=== PATIENT | female | born 1935 | race Caucasian/White ===

== ENCOUNTER 2017-04-09 20:24 | Inpatient (IN) | payer MEDICARE ==
[~2017-04-09] VITALS: Ht 162.6 cm; Wt 89.7 kg
[2017-04-09 20:56] LABS: BASOPHILS 0.3 % (0-2); EOSINOPHILS 3.9 % (0-7); HEMOGLOBIN 16.4 g/dL (12-16); IMMATURE GRANULOCYTES 0.3 % (0-5); LYMPHOCYTES 20.7 % (15-50); MCH 32.7 pg (26.0-34.0); MCHC 34.2 g/dL (31.0-37.0); MCV 95.8 fL (80.0-100.0); MEAN PLATELET VOLUME 10.1 fL (7.4-10.4); NEUTROPHILS 63.8 % (40-80); PLATELET COUNT 239 10x3/uL (130-400); RBC 5.01 10x6/uL (4.00-5.40); RDW 12.6 % (11.5-14.5)
[2017-04-09 21:13] LABS: ALBUMIN 3.4 g/dL (3.4-5.0); ANION GAP 14.3 mmol/L (8-16); BILIRUBIN - TOTAL 0.52 mg/dL (0.2-1.3); CALCIUM 9.9 mg/dL (8.5-10.1); CARBON DIOXIDE 22.7 mmol/L (21.0-32.0); CREATININE - SERUM 1.4 mg/dL (0.6-1.3)
[2017-04-09 22:21] LABS: APPEARANCE CLEAR (CLEAR); BILIRUBIN NEGATIVE (NEGATIVE); COLOR YELLOW (YELLOW); GLUCOSE NEGATIVE (NEGATIVE); KETONE MODERATE mg/dL (NEGATIVE); NITRITE NEGATIVE (NEGATIVE); PROTEIN NEGATIVE (NEGATIVE); UROBILINOGEN NORMAL (NORMAL)
[2017-04-10] MEDS ORDERED: GLUCOPHAGE500 MG PO (02:47)
[2017-04-10] MEDS ORDERED: ZOCOR20 MG PO (02:47)
[2017-04-10] MEDS ORDERED: UROCIT-K10 MEQ PO (02:48)
[2017-04-10] MEDS ORDERED: OMEPRAZOLE20 M1 PO (02:48)
[2017-04-10] MEDS ORDERED: NEURONTIN 300300 MG PO (02:49)
[2017-04-10] MEDS ORDERED: ASCORBIC ACID500 MG PO (02:49)
[2017-04-10] MEDS ORDERED: LASIX20 MG PO (02:50)
[2017-04-10] MEDS ORDERED: PRESERVISION AR1 CAP PO (02:50)
[2017-04-10] MEDS ORDERED: LEVOXYL50 MCG PO (02:51)
[2017-04-10] MEDS ORDERED: ULTRAM50 MG PO (02:51)
[2017-04-10] MEDS ORDERED: TOPROL XL50 MG PO (02:52)
[2017-04-10 03:22] VITALS: BP 116/87; BMI 35.2
[2017-04-10 04:00] VITALS: BP 160/82
[2017-04-10 10:41] VITALS: BP 114/70
[2017-04-10 13:16] VITALS: Ht 162.6 cm; Wt 89.7 kg
[2017-04-10 13:28] VITALS: BP 153/86
[2017-04-10 17:54] VITALS: BP 167/72
[2017-04-10 20:16] VITALS: BP 152/78
[2017-04-11 02:22] VITALS: BP 186/89
[2017-04-11 06:01] LABS: BASOPHILS 0.3 % (0-2); EOSINOPHILS 2.1 % (0-7); HEMATOCRIT 45.5 % (36.0-48.0); HEMOGLOBIN 15.3 g/dL (12-16); IMMATURE GRANULOCYTES 0.3 % (0-5); LYMPHOCYTES 19.5 % (15-50); MCHC 33.6 g/dL (31.0-37.0); MCV 95.2 fL (80.0-100.0); MEAN PLATELET VOLUME 10.4 fL (7.4-10.4); MONOCYTES 13.4 % (2-11); NEUTROPHILS 64.4 % (40-80); PLATELET COUNT 253 10x3/uL (130-400); RBC 4.78 10x6/uL (4.00-5.40); WBC 6.6 10x3/uL (4.8-10.8)
[2017-04-11 06:14] LABS: ANION GAP 14.2 mmol/L (8-16); CALCIUM 9.5 mg/dL (8.5-10.1); CARBON DIOXIDE 23.7 mmol/L (21.0-32.0); CREATININE - SERUM 1.3 mg/dL (0.6-1.3); POTASSIUM - SERUM 3.9 mmol/L (3.5-5.1)
[2017-04-11 08:34] VITALS: BP 166/75
[2017-04-11 11:50] VITALS: BP 141/81
[2017-04-11 16:22] VITALS: BP 139/62
[2017-04-11 20:00] VITALS: BP 176/82
[2017-04-12 04:00] VITALS: BP 185/87
[2017-04-12 05:34] LABS: BASOPHILS 0.4 % (0-2); HEMATOCRIT 45.6 % (36.0-48.0); HEMOGLOBIN 15.4 g/dL (12-16); IMMATURE GRANULOCYTES 0.4 % (0-5); LYMPHOCYTES 16.9 % (15-50); MCH 32.1 pg (26.0-34.0); MCHC 33.8 g/dL (31.0-37.0); MEAN PLATELET VOLUME 10.1 fL (7.4-10.4); MONOCYTES 10.3 % (2-11); PLATELET COUNT 253 10x3/uL (130-400); RDW 12.9 % (11.5-14.5)
[2017-04-12 05:45] LABS: ANION GAP 15.4 mmol/L (8-16); CALCIUM 9.5 mg/dL (8.5-10.1); CARBON DIOXIDE 23.6 mmol/L (21.0-32.0); CREATININE - SERUM 1.1 mg/dL (0.6-1.3)
[2017-04-12 09:02] VITALS: BP 183/79
[2017-04-12 12:14] VITALS: BP 132/78
[2017-04-12 16:19] VITALS: BP 160/78
[2017-04-12 20:46] VITALS: BP 150/75
[2017-04-13 05:57] LABS: BASOPHILS 0.4 % (0-2); EOSINOPHILS 2.8 % (0-7); IMMATURE GRANULOCYTES 0.8 % (0-5); LYMPHOCYTES 22.4 % (15-50); MCH 33.1 pg (26.0-34.0); MCHC 35.6 g/dL (31.0-37.0); MCV 93.2 fL (80.0-100.0); MONOCYTES 11.3 % (2-11); NEUTROPHILS 62.3 % (40-80); PLATELET COUNT 201 10x3/uL (130-400); RBC 4.83 10x6/uL (4.00-5.40); RDW 12.8 % (11.5-14.5); WBC 8.5 10x3/uL (4.8-10.8)
[2017-04-13 05:59] LABS: CALCIUM 8.9 mg/dL (8.5-10.1); CARBON DIOXIDE 19.6 mmol/L (21.0-32.0); CREATININE - SERUM 1.3 mg/dL (0.6-1.3)
[2017-04-13 06:00] LABS: POTASSIUM - SERUM 3.6 mmol/L (3.5-5.1)
[2017-04-13 06:57] VITALS: BP 182/85
[2017-04-13 10:27] VITALS: BP 186/87
[2017-04-13 12:45] VITALS: BP 150/74
[2017-04-13 16:25] VITALS: BP 174/81
[2017-04-13 20:49] VITALS: BP 136/71
[2017-04-14 06:33] VITALS: BP 131/83
[2017-04-14 06:52] LABS: BASOPHILS 0.5 % (0-2); EOSINOPHILS 3.4 % (0-7); HEMATOCRIT 45.7 % (36.0-48.0); HEMOGLOBIN 15.6 g/dL (12-16); IMMATURE GRANULOCYTES 0.2 % (0-5); LYMPHOCYTES 22.2 % (15-50); MCHC 34.1 g/dL (31.0-37.0); MCV 93.6 fL (80.0-100.0); MEAN PLATELET VOLUME 10.5 fL (7.4-10.4); MONOCYTES 10.6 % (2-11); NEUTROPHILS 63.1 % (40-80); PLATELET COUNT 225 10x3/uL (130-400); RBC 4.88 10x6/uL (4.00-5.40); RDW 12.9 % (11.5-14.5); WBC 8.3 10x3/uL (4.8-10.8)
[2017-04-14 06:55] LABS: ANION GAP 15.9 mmol/L (8-16); CALCIUM 9.1 mg/dL (8.5-10.1); CARBON DIOXIDE 17.4 mmol/L (21.0-32.0); CREATININE - SERUM 1.1 mg/dL (0.6-1.3); POTASSIUM - SERUM 3.3 mmol/L (3.5-5.1)
[2017-04-14 07:59] VITALS: BP 145/79
[2017-04-14 11:22] VITALS: BP 132/76
[2017-04-14 15:32] VITALS: BP 138/69
[2017-04-14 20:30] VITALS: BP 168/83
[2017-04-14] MEDS ORDERED: LUMIGAN 0.01%2.5 ML EACH EYE (23:04)
[2017-04-15 00:30] VITALS: BP 142/73
[2017-04-15 04:30] VITALS: BP 176/80
[2017-04-15 05:10] LABS: ANION GAP 14.7 mmol/L (8-16); CALCIUM 9.3 mg/dL (8.5-10.1); CREATININE - SERUM 1.3 mg/dL (0.6-1.3); POTASSIUM - SERUM 3.5 mmol/L (3.5-5.1)
[2017-04-15 05:15] LABS: BASOPHILS 0.5 % (0-2); EOSINOPHILS 2.7 % (0-7); HEMATOCRIT 45.8 % (36.0-48.0); HEMOGLOBIN 15.9 g/dL (12-16); IMMATURE GRANULOCYTES 0.3 % (0-5); LYMPHOCYTES 21.7 % (15-50); MCH 31.9 pg (26.0-34.0); MCHC 34.7 g/dL (31.0-37.0); MCV 91.8 fL (80.0-100.0); MEAN PLATELET VOLUME 10.3 fL (7.4-10.4); MONOCYTES 10.8 % (2-11); PLATELET COUNT 255 10x3/uL (130-400); RBC 4.99 10x6/uL (4.00-5.40); WBC 7.9 10x3/uL (4.8-10.8)
[2017-04-15 05:22] LABS: CARBON DIOXIDE 21.8 mmol/L (21.0-32.0)
[2017-04-15 08:08] VITALS: BP 154/71
[2017-04-15 10:58] VITALS: BP 146/66
[2017-04-15 15:29] VITALS: BP 140/68
[2017-04-15] MEDS ORDERED: NORVASC5 MG PO (15:44)
== END 2017-04-15 18:33 | DRG 682 ==
LOC: EDBD 20:24 → D.ER 20:24 → D.M2 04-10 01:39
PROVIDERS: Emergency Medicine; Internal Medicine Nephrology
DX: N17.9 Acute kidney failure, unspecified (principal); G92 Toxic encephalopathy; N39.0 Urinary tract infection, site not specified; E11.9 Type 2 diabetes mellitus without complications; Z86.73 Personal history of transient ischemic attack (TIA), and cerebral infarction without residual deficits; G30.9 Alzheimer's disease, unspecified; F02.80 Dementia in other diseases classified elsewhere, unspecified severity, without behavioral disturbance, psychotic disturbance, mood disturbance, and anxiety; I10 Essential (primary) hypertension; E78.5 Hyperlipidemia, unspecified; E03.9 Hypothyroidism, unspecified; B96.1 Klebsiella pneumoniae [K. pneumoniae] as the cause of diseases classified elsewhere; B96.20 Unspecified Escherichia coli [E. coli] as the cause of diseases classified elsewhere

== ENCOUNTER 2017-04-15 18:15 | Inpatient (IN) | payer MEDICARE ==
[~2017-04-15] VITALS: Ht 162.6 cm; Wt 89.5 kg
--- NOTE | ~2017-04-15 | RHP ---
PATIENT: ABHIJIT GALE MEDICAL RECORD: [id number] ACCOUNT: [id number] LOCATION:[facility] D.1110 : 35 ADMISSION DATE: 04/15/17 REHABILITATION HISTORY AND PHYSICAL EXAMINATION POST ADMISSION PHYSICIAN EXAMINATION DATE OF ADMISSION TO THE REHAB: 04/15/2017. ADMITTING DIAGNOSIS: Acute toxic metabolic encephalopathy. HISTORY OF PRESENT ILLNESS: The patient is an 81-year-old female patient admitted to the inpatient rehab with acute toxic metabolic encephalopathy, presented to the ER on 04/10/2017 with altered mental status. Her daughter reports that approximately 2 weeks ago, she contracted influenza type A and she was treated with Tamiflu. She then developed generalized weakness, nausea and vomiting, decreased appetite. The daughter had noticed the patient's level of alertness and ability to speak also declined. X-ray showed no acute findings. MRI of her brain was normal. She was admitted for further evaluation and treatment. Urine culture did grow out Klebsiella and E. coli. She was placed on Levaquin. A bedside swallow eval showed no signs of aspiration, but recommended swallowing precautions sitting upright, alternation of bites to sips at a 2:1 ratio. Mental status is now cleared with cessation of high dose Neurontin and treatment of UTI. Previously, she was independent with ADLs and mobility. Currently, she is min to moderate assist with ADLs and mobility. She has had prolonged immobility, progressive generalized weakness, especially in her lower extremities affecting her exercise tolerance. She is moderate assist for sit to stand and bed to chair. She ambulates 200 feet with a rolling walker, gait belt with 40% assist. She is weak and has a slow short step with fair balance. She has good family support and is motivated to get back to her prior level of functioning. COMORBIDITIES: In this patient include hypothyroidism, diabetes, dysphagia, encephalopathy, kidney injury, vertigo, neuropathy, hyperlipidemia, acute mental status changes, confusion, weakness, diabetes, hypokalemia, positive UA, headache, anxiety, and history of CVA. PAST MEDICAL HISTORY: Significant for CVA, neuropathy, weakness, and vertigo. She has had a history of glaucoma. She has got a history of diabetes and thyroid problems, syncope, hypertension, acid reflux, dementia, and anxiety. PAST SURGICAL HISTORY: Includes wrist surgery. She has had a parathyroidectomy and TMJ surgery. ALLERGIES: No known drug allergies. CURRENT MEDICATIONS: Include Urocit-K 10 mEq b.i.d. with meals, Protonix 40 mg daily, metoprolol 50 mg daily, metformin 500 mg daily. She is on Synthroid 50 mcg daily, furosemide 20 mg daily, beta carotene vitamin daily, tramadol 50 mg q.6 hours p.r.n. She is on bimatoprost ophthalmic solution 1 drop q.h.s. She is on ascorbic acid 500 mg b.i.d., amlodipine 5 mg b.i.d., and polyethylene glycol 17 grams in 8 ounces of water daily. HABITS: No alcohol or tobacco use. FAMILY HISTORY: Noncontributory. HISTORY AND PHYSICAL [id number] ABHIJIT GALE SOCIAL HISTORY: The patient hopes to return back with her family and get back to her prior level of functioning. REVIEW OF SYSTEMS: GENERAL: Does complain of weakness and fatigue. HEENT: Denies cold, cough, or congestion. CARDIOVASCULAR: Denies chest pain. PHYSICAL EXAMINATION: VITAL SIGNS: Stable, afebrile. GENERAL: Elderly female in no acute distress, alert upon exam. HEENT: Normocephalic and atraumatic. Mucosa moist. NECK: Supple. No lymphadenopathy. LUNGS: Clear at this time. HEART: Regular rate and rhythm. ABDOMEN: Benign. EXTREMITIES: No clubbing, cyanosis or edema. NEUROLOGIC: Slow to mentate. She does have noted weakness. LABORATORY DATA: Her white count was 7.5, H&H of 15 and 43 and platelet count of 229. Sodium is 139, potassium 3.4, BUN and creatinine of 16 and 1.2 and blood sugar is noted to be 114. ASSESSMENT: This is an 81-year-old female patient admitted to the rehab with a working diagnosis of acute metabolic toxic encephalopathy. The patient has potential to make improvement. We instituted the following multidisciplinary therapies including to, but not limited to physical, occupational, respiratory, speech, nutritional services, prosthetics and orthotics. Given her complex medical condition and risk for more complications, rehabilitation service cannot be provided at a lower level of care such as a half-way facility. PLAN: 1. Admit to [facility] rehab for intensive inpatient therapy to include the following disciplines: A. Physical therapy to improve gait, all transfer skills and bed mobility to a modified independent level. B. Occupational therapy to improve activities of daily living to a modified independent level. C. Case management to assist with discharge planning and placement options. D. Nutrition to assist with nutritional needs. E. Rehabilitation nursing to assist the patient underlying medical conditions and to assist with any type of bowel or bladder management. 2. The patient's current medication and medical care will be continued. 3. The patient will be placed on standard fall precautions. 4. The patient's estimated length of stay is approximately 7 to 10 days. 5. Discuss this patient during care team staff meeting this week. TRANSINT:[id number] Voice Confirmation ID: [id number] DOCUMENT ID: [id number] DAPHNE notes whether there has been none or any medical/functional change since admission: - No change since prescreen. HISTORY AND PHYSICAL [id number] ABHIJIT GALE attests patient continues to be appropriate for IRF: - Continues to be appropriate. SUMMER BEGUM MD at 1739 CC: [id number] DICTATION DATE: 04/16/17 1032 ENERGY AUDIT ADVISOR: 04/16/17 1102 ADM IN [facility] [address] [place] [address]
[~2017-04-15 18:15] MED LIST: ASCORBIC ACID500 MG PO; GLUCOPHAGE500 MG PO; LASIX20 MG PO; LEVOXYL50 MCG PO; LUMIGAN 0.01%2.5 ML EACH EYE; NEURONTIN 300300 MG PO; NORVASC5 MG PO; OMEPRAZOLE20 M1 PO; PRESERVISION AR1 CAP PO; TOPROL XL50 MG PO; ULTRAM50 MG PO; UROCIT-K10 MEQ PO; ZOCOR20 MG PO
[2017-04-15 22:39] VITALS: BP 162/74; BMI 33.9
[2017-04-16 07:17] LABS: HEMOGLOBIN 15.1 g/dL (12-16); LYMPHOCYTES 23.8 % (15-50); MCH 32.3 pg (26.0-34.0); MCHC 35.1 g/dL (31.0-37.0); MCV 91.9 fL (80.0-100.0); MEAN PLATELET VOLUME 9.7 fL (7.4-10.4); PLATELET COUNT 229 10x3/uL (130-400); RBC 4.68 10x6/uL (4.00-5.40); RDW 13.3 % (11.5-14.5); WBC 7.5 10x3/uL (4.8-10.8)
[2017-04-16 07:21] LABS: ANION GAP 13.2 mmol/L (8-16); CALCIUM 9.5 mg/dL (8.5-10.1); CARBON DIOXIDE 22.2 mmol/L (21.0-32.0); CREATININE - SERUM 1.2 mg/dL (0.6-1.3); POTASSIUM - SERUM 3.4 mmol/L (3.5-5.1)
[2017-04-16 08:16] VITALS: BP 151/77
[2017-04-16 11:04] VITALS: Ht 162.6 cm; Wt 89.5 kg
[2017-04-16 20:30] VITALS: BP 130/68
[2017-04-17 07:00] LABS: BASOPHILS 0.6 % (0-2); EOSINOPHILS 3.1 % (0-7); HEMATOCRIT 43.6 % (36.0-48.0); HEMOGLOBIN 15.3 g/dL (12-16); IMMATURE GRANULOCYTES 0.4 % (0-5); LYMPHOCYTES 25.9 % (15-50); MCH 32.3 pg (26.0-34.0); MCHC 35.1 g/dL (31.0-37.0); MCV 92.2 fL (80.0-100.0); MEAN PLATELET VOLUME 10.6 fL (7.4-10.4); MONOCYTES 12.7 % (2-11); NEUTROPHILS 57.3 % (40-80); PLATELET COUNT 242 10x3/uL (130-400); RBC 4.73 10x6/uL (4.00-5.40); WBC 7.2 10x3/uL (4.8-10.8)
[2017-04-17 07:17] LABS: ANION GAP 16.3 mmol/L (8-16); CALCIUM 9.6 mg/dL (8.5-10.1); CARBON DIOXIDE 21.3 mmol/L (21.0-32.0); CREATININE - SERUM 1.4 mg/dL (0.6-1.3); POTASSIUM - SERUM 3.6 mmol/L (3.5-5.1)
[2017-04-17 08:07] VITALS: BP 138/73
[2017-04-17 21:45] VITALS: BP 133/82
[2017-04-18 08:00] VITALS: BP 125/64
[2017-04-18 22:09] VITALS: BP 122/66
[2017-04-19 06:26] LABS: BASOPHILS 0.3 % (0-2); HEMATOCRIT 43.6 % (36.0-48.0); HEMOGLOBIN 15.3 g/dL (12-16); IMMATURE GRANULOCYTES 0.2 % (0-5); LYMPHOCYTES 20.8 % (15-50); MCH 32.5 pg (26.0-34.0); MCHC 35.1 g/dL (31.0-37.0); MCV 92.6 fL (80.0-100.0); MEAN PLATELET VOLUME 10.5 fL (7.4-10.4); MONOCYTES 18.6 % (2-11); NEUTROPHILS 58.1 % (40-80); PLATELET COUNT 247 10x3/uL (130-400); RBC 4.71 10x6/uL (4.00-5.40); RDW 13.4 % (11.5-14.5); WBC 8.7 10x3/uL (4.8-10.8)
[2017-04-19 06:39] LABS: ANION GAP 12.9 mmol/L (8-16); CREATININE - SERUM 1.6 mg/dL (0.6-1.3); POTASSIUM - SERUM 3.4 mmol/L (3.5-5.1)
[2017-04-19 06:40] LABS: CARBON DIOXIDE 27.5 mmol/L (21.0-32.0)
[2017-04-19 06:56] LABS: CALCIUM 10.1 mg/dL (8.5-10.1)
[2017-04-19 08:29] VITALS: BP 122/66
[2017-04-19 20:00] VITALS: BP 125/60
[2017-04-20 07:39] VITALS: BP 128/76
[2017-04-20 07:55] VITALS: BP 128/76
[2017-04-20 19:45] VITALS: BP 125/83
[2017-04-21 11:33] VITALS: BP 116/75
[2017-04-21 20:30] VITALS: BP 122/65
[2017-04-22 05:17] LABS: BASOPHILS 0.2 % (0-2); EOSINOPHILS 0.4 % (0-7); HEMATOCRIT 44.1 % (36.0-48.0); HEMOGLOBIN 15.1 g/dL (12-16); IMMATURE GRANULOCYTES 0.2 % (0-5); LYMPHOCYTES 20.9 % (15-50); MCH 31.9 pg (26.0-34.0); MCHC 34.2 g/dL (31.0-37.0); MCV 93.2 fL (80.0-100.0); MEAN PLATELET VOLUME 10.7 fL (7.4-10.4); MONOCYTES 20.5 % (2-11); NEUTROPHILS 57.8 % (40-80); PLATELET COUNT 245 10x3/uL (130-400); RBC 4.73 10x6/uL (4.00-5.40); RDW 13.3 % (11.5-14.5); WBC 5.4 10x3/uL (4.8-10.8)
[2017-04-22 05:35] LABS: ANION GAP 15.2 mmol/L (8-16); CARBON DIOXIDE 25.6 mmol/L (21.0-32.0); CREATININE - SERUM 1.4 mg/dL (0.6-1.3); POTASSIUM - SERUM 3.8 mmol/L (3.5-5.1)
[2017-04-22 07:48] VITALS: BP 126/73
[2017-04-22 19:00] VITALS: BP 133/73
[2017-04-23 10:12] VITALS: BP 120/70
[2017-04-23 21:40] VITALS: BP 131/68
[2017-04-24 05:44] LABS: BASOPHILS 0.2 % (0-2); EOSINOPHILS 0.2 % (0-7); HEMATOCRIT 42.9 % (36.0-48.0); HEMOGLOBIN 14.7 g/dL (12-16); IMMATURE GRANULOCYTES 0.4 % (0-5); LYMPHOCYTES 36.1 % (15-50); MCHC 34.3 g/dL (31.0-37.0); MCV 93.5 fL (80.0-100.0); MEAN PLATELET VOLUME 10.7 fL (7.4-10.4); MONOCYTES 17.8 % (2-11); NEUTROPHILS 45.3 % (40-80); PLATELET COUNT 228 10x3/uL (130-400); RBC 4.59 10x6/uL (4.00-5.40); RDW 13.4 % (11.5-14.5); WBC 4.9 10x3/uL (4.8-10.8)
[2017-04-24 05:52] LABS: ANION GAP 15.5 mmol/L (8-16); CALCIUM 9.3 mg/dL (8.5-10.1); CARBON DIOXIDE 25.1 mmol/L (21.0-32.0); CREATININE - SERUM 1.5 mg/dL (0.6-1.3); POTASSIUM - SERUM 3.6 mmol/L (3.5-5.1)
[2017-04-24 07:48] VITALS: BP 131/77
[2017-04-24 19:55] VITALS: BP 134/72
[2017-04-25 07:42] VITALS: BP 142/82
[2017-04-25 19:55] VITALS: BP 127/71
[2017-04-26 07:07] LABS: BASOPHILS 0.4 % (0-2); EOSINOPHILS 2.2 % (0-7); HEMATOCRIT 47.3 % (36.0-48.0); IMMATURE GRANULOCYTES 0.6 % (0-5); LYMPHOCYTES 43.8 % (15-50); MCH 31.9 pg (26.0-34.0); MCHC 33.8 g/dL (31.0-37.0); MCV 94.2 fL (80.0-100.0); MEAN PLATELET VOLUME 10.6 fL (7.4-10.4); MONOCYTES 12.1 % (2-11); NEUTROPHILS 40.9 % (40-80); PLATELET COUNT 223 10x3/uL (130-400); RBC 5.02 10x6/uL (4.00-5.40); RDW 13.4 % (11.5-14.5); WBC 4.6 10x3/uL (4.8-10.8)
[2017-04-26 07:12] LABS: CALCIUM 9.3 mg/dL (8.5-10.1); CARBON DIOXIDE 25.8 mmol/L (21.0-32.0); CREATININE - SERUM 1.6 mg/dL (0.6-1.3); POTASSIUM - SERUM 3.8 mmol/L (3.5-5.1)
[2017-04-26 09:10] VITALS: BP 110/70
[2017-04-26 20:00] VITALS: BP 100/68
[2017-04-27 08:32] VITALS: BP 114/67
[2017-04-27 19:40] VITALS: BP 111/66
[2017-04-28 07:56] VITALS: BP 120/69
[2017-04-28 22:00] VITALS: BP 128/73
[2017-04-29 06:32] LABS: BASOPHILS 0.4 % (0-2); EOSINOPHILS 3.7 % (0-7); HEMOGLOBIN 16.4 g/dL (12-16); IMMATURE GRANULOCYTES 0.4 % (0-5); LYMPHOCYTES 40.3 % (15-50); MCH 31.8 pg (26.0-34.0); MCHC 34.2 g/dL (31.0-37.0); MEAN PLATELET VOLUME 10.7 fL (7.4-10.4); MONOCYTES 10.5 % (2-11); NEUTROPHILS 44.7 % (40-80); PLATELET COUNT 217 10x3/uL (130-400); RBC 5.16 10x6/uL (4.00-5.40); RDW 13.2 % (11.5-14.5); WBC 6.9 10x3/uL (4.8-10.8)
[2017-04-29 06:37] LABS: ANION GAP 17.7 mmol/L (8-16); CALCIUM 9.7 mg/dL (8.5-10.1); CARBON DIOXIDE 21.4 mmol/L (21.0-32.0); CREATININE - SERUM 1.4 mg/dL (0.6-1.3); POTASSIUM - SERUM 4.1 mmol/L (3.5-5.1)
[2017-04-29 07:45] VITALS: BP 123/67
[2017-04-29 20:00] VITALS: BP 133/68
[2017-04-30 08:48] VITALS: BP 118/60
== END 2017-04-30 14:18 | disposition home health service (06) | DRG 92 ==
LOC: D.REHAB 18:15
PROVIDERS: Emergency Medicine
DX: G92 Toxic encephalopathy (principal); N17.9 Acute kidney failure, unspecified; R13.10 Dysphagia, unspecified; E03.9 Hypothyroidism, unspecified; Z66 Do not resuscitate; E78.5 Hyperlipidemia, unspecified; G62.9 Polyneuropathy, unspecified; R42 Dizziness and giddiness; R53.1 Weakness; R41.82 Altered mental status, unspecified; E87.6 Hypokalemia; F41.9 Anxiety disorder, unspecified; G30.9 Alzheimer's disease, unspecified; F02.80 Dementia in other diseases classified elsewhere, unspecified severity, without behavioral disturbance, psychotic disturbance, mood disturbance, and anxiety; E11.40 Type 2 diabetes mellitus with diabetic neuropathy, unspecified

== ENCOUNTER → 2017-06-03 18:55 | Outpatient (CLI) | payer MEDICARE ==
[2017-04-16 11:04] VITALS: BMI 33.8
[2017-06-06 19:12] LABS: LEAD 1 ug/dL (0-19)
== END | disposition home or self-care (01) ==
LOC: D.LABREF 18:55
PROVIDERS: Family Medicine
DX: Z86.73 Personal history of transient ischemic attack (TIA), and cerebral infarction without residual deficits (principal); G93.41 Metabolic encephalopathy; F02.80 Dementia in other diseases classified elsewhere, unspecified severity, without behavioral disturbance, psychotic disturbance, mood disturbance, and anxiety

== ENCOUNTER 2017-10-11 14:37 | Emergency (ER) | payer MEDICARE ==
[~2017-10-11] VITALS: Ht 162.6 cm; Wt 77.3 kg
[2017-10-11 14:39] VITALS: Ht 162.6 cm; Wt 77.3 kg
[2017-10-11] MEDS ORDERED: LOSARTAN POTASS25 MG PO (14:43)
[2017-10-11] MEDS ORDERED: PRESERVISION AR1 CAP PO (14:43)
[2017-10-11] MEDS ORDERED: XALATAN 0.0052.5 ML EACH EYE (14:43)
[2017-10-11] MEDS ORDERED: NYSTATIN15 GM TOPICAL (14:44)
[2017-10-11] MEDS ORDERED: ZOFRAN ODT4 MG/UDTAB PO (14:44)
[2017-10-11] MEDS ORDERED: CATAPRES0.1 MG PO (14:45)
[2017-10-11] MEDS ORDERED: PROTONIX40 MG PO (14:45)
[2017-10-11] MEDS ORDERED: VOLTAREN100 GM TOPICAL (14:46)
[2017-10-11] MEDS ORDERED: EFFEXOR XR75 MG PO (14:46)
[2017-10-11] MEDS ORDERED: ACETAMINOPHEN325 MG PO (14:47)
[2017-10-11] MEDS ORDERED: ALENDRONATE SOD70 MG PO (14:47)
[2017-10-11] MEDS ORDERED: ARICEPT10 MG PO (14:48)
[2017-10-11] MEDS ORDERED: ASPIRIN EC81 M1 PO (14:48)
[2017-10-11] MEDS ORDERED: VITAMIN D10000 UNI1 PO (14:48)
[2017-10-11 18:24] VITALS: BP 172/82
== END 2017-10-11 17:00 ==
LOC: D.ER 14:37
DX: I10 Essential (primary) hypertension (principal); W19.XXXA Unspecified fall, initial encounter; Y93.89 Activity, other specified; Y92.019 Unspecified place in single-family (private) house as the place of occurrence of the external cause; R51 Headache; E11.9 Type 2 diabetes mellitus without complications; E07.9 Disorder of thyroid, unspecified; F03.90 Unspecified dementia, unspecified severity, without behavioral disturbance, psychotic disturbance, mood disturbance, and anxiety

== ENCOUNTER → 2017-12-13 18:42 | Outpatient (CLI) | payer MEDICARE ==
[2017-10-11 14:39] VITALS: BMI 29.2
[~2017-12-13 18:42] MED LIST changes: +ACETAMINOPHEN325 MG PO; +ALENDRONATE SOD70 MG PO; +ARICEPT10 MG PO; +ASPIRIN EC81 M1 PO; +CATAPRES0.1 MG PO; +EFFEXOR XR75 MG PO; +LOSARTAN POTASS25 MG PO; +NYSTATIN15 GM TOPICAL; +PROTONIX40 MG PO; +VITAMIN D10000 UNI1 PO; +VOLTAREN100 GM TOPICAL; +XALATAN 0.0052.5 ML EACH EYE; +ZOFRAN ODT4 MG/UDTAB PO
[2017-12-13 19:09] LABS: APPEARANCE CLEAR (CLEAR); BILIRUBIN NEGATIVE (NEGATIVE); COLOR YELLOW (YELLOW); GLUCOSE NEGATIVE (NEGATIVE); KETONE NEGATIVE (NEGATIVE); NITRITE NEGATIVE (NEGATIVE); PROTEIN NEGATIVE (NEGATIVE); SPECIFIC GRAVITY 1.015 (1.005-1.020); UROBILINOGEN NORMAL (NORMAL)
== END | disposition home or self-care (01) ==
LOC: D.LABREF 18:42
PROVIDERS: Orthopaedic Surgery Adult Reconstructive Orthopaedic Surgery
DX: Z87.440 Personal history of urinary (tract) infections (principal); R30.0 Dysuria

== ENCOUNTER 2019-02-04 17:56 | Inpatient (IN) | payer MEDICARE ==
[~2019-02-04] VITALS: Ht 162.6 cm; Wt 88.6 kg
[2019-02-04] MEDS ORDERED: SUMATRIPTAN SUC25 MG PO (18:17)
[2019-02-04] MEDS ORDERED: ZETIA10 MG PO (18:18)
[2019-02-04] MEDS ORDERED: HCTZ25 MG (18:18)
[2019-02-04] MEDS ORDERED: FLUTICASONE PRO16 GM NASAL (18:18)
--- NOTE | 2019-02-04 19:06 | NUR ---
BS REPORT TO MARIE SANTOYO
[2019-02-04 19:07] VITALS: BP 118/78
[2019-02-04 19:07] LABS: CALC OSMOLALITY 294 mosm/kg (275-300); CALCIUM 9.8 mg/dL (8.5-10.1); CHLORIDE - SERUM 102 mmol/L (98-107); CREATININE - SERUM 1.8 mg/dL (0.6-1.3); POTASSIUM - SERUM 4.9 mmol/L (3.5-5.1); SODIUM 140 mmol/L (136-145); UREA NITROGEN 41 mg/dL (7-18); eGFR NON AFRICAN AMERICAN 28 mL/min (90-120)
[2019-02-04 19:08] LABS: GLUCOSE 210 mg/dL (74-106)
[2019-02-04 19:16] LABS: ALBUMIN 3.3 g/dL (3.4-5.0); ALKALINE PHOSPHATASE 82 U/L (46-116); ALT (SGPT) 89 U/L (10-68); AMYLASE - SERUM 57 U/L (25-115); BILIRUBIN - TOTAL 0.76 mg/dL (0.2-1.3); LIPASE 108 U/L (73-393); PROTEIN - SERUM 7.1 g/dL (6.4-8.2)
[2019-02-04 19:17] LABS: TROPONIN-I < 0.017 ng/mL (0.000-0.060)
[2019-02-04 19:19] LABS: BASOPHILS 0.1 % (0-2); EOSINOPHILS 0 % (0-7); HEMATOCRIT 48.9 % (36.0-48.0); HEMOGLOBIN 16.5 g/dL (12-16); IMMATURE GRANULOCYTES 0.3 % (0-5); LYMPHOCYTES 2.4 % (15-50); MCH 33.1 pg (26.0-34.0); MCHC 33.7 g/dL (31.0-37.0); MCV 98.2 fL (80.0-100.0); MEAN PLATELET VOLUME 10.2 fL (7.4-10.4); MONOCYTES 5.8 % (2-11); NEUTROPHILS 91.4 % (40-80); PLATELET COUNT 206 10x3/uL (130-400); RBC 4.98 10x6/uL (4.00-5.40); RDW 12.8 % (11.5-14.5); WBC 11.2 10x3/uL (4.8-10.8)
[2019-02-04 20:09] VITALS: BP 137/65
--- NOTE | 2019-02-04 21:45 | NUR ---
RECIEVED REPORT FROM [facility]. PT ARRIVED BY BED. VSS, ALTHOUGH PT HAS A TEMP OF 101.4. PT STATES SHE FEELS A LITTLE QUEASY IN HER ABDOMEN. WILL NOTIFY ELECTRICAL ENGINEERING DESIGNER. FAMILY AT BEDSIDE. PT DENIES ANY FURTHER NEEDS AT THIS TIME. WILL CPOC. CL WITHIN REACH.
[2019-02-04 21:58] LABS: APPEARANCE CLEAR (CLEAR); BILIRUBIN NEGATIVE (NEGATIVE); COLOR YELLOW (YELLOW); GLUCOSE NEGATIVE (NEGATIVE); KETONE NEGATIVE (NEGATIVE); NITRITE NEGATIVE (NEGATIVE); PROTEIN NEGATIVE (NEGATIVE); SPECIFIC GRAVITY 1.015 (1.005-1.020); UROBILINOGEN NORMAL (NORMAL)
[2019-02-04 22:20] VITALS: BP 118/64; BMI 33.9
[2019-02-05 06:58] LABS: APTT 26.7 SECONDS (22.8-39.4); INR 1.05 (0.85-1.17); PROTIME 13.2 SECONDS (11.6-15.0)
[2019-02-05 07:25] LABS: ALBUMIN 2.6 g/dL (3.4-5.0); BILIRUBIN - TOTAL 0.41 mg/dL (0.2-1.3); CARBON DIOXIDE 23.4 mmol/L (21.0-32.0); CREATININE - SERUM 1.5 mg/dL (0.6-1.3); MAGNESIUM - SERUM 1.4 mg/dL (1.8-2.4); PHOSPHOROUS 2.4 mg/dL (2.5-4.9); PROTEIN - SERUM 5.5 g/dL (6.4-8.2)
[2019-02-05 07:29] LABS: ANION GAP 15.2 mmol/L (8-16); POTASSIUM - SERUM 3.6 mmol/L (3.5-5.1)
[2019-02-05 07:58] LABS: HEMATOCRIT 39.2 % (36.0-48.0); MCH 32.7 pg (26.0-34.0); MCHC 33.2 g/dL (31.0-37.0); MCV 98.5 fL (80.0-100.0); MEAN PLATELET VOLUME 9.9 fL (7.4-10.4); PLATELET COUNT 207 10x3/uL (130-400)
[2019-02-05 07:59] LABS: RBC 3.98 10x6/uL (4.00-5.40); WBC 7.3 10x3/uL (4.8-10.8)
[2019-02-05 08:44] VITALS: BP 104/50
[2019-02-05 10:18] LABS: CRENATED CELLS 1+; LYMPHOCYTES 14 % (15-50); MONOCYTES 7 % (2-11); NEUTROPHILS 78 % (40-80); PLATELET ESTIMATE NORMAL
[2019-02-05 10:19] LABS: ANISOCYTOSIS OCC; SMUDGE CELLS OCC
[2019-02-05 12:00] VITALS: BP 97/55
[2019-02-05 14:19] VITALS: Ht 162.6 cm; Wt 88.6 kg
[2019-02-05 17:49] VITALS: BP 100/55
--- NOTE | 2019-02-05 19:28 | NUR ---
ALERT AND OX4 LCTA BED IS LOW AND CALL LIGHT IS WITH PT PT DENIES NEEDS AT THIS TIME
[2019-02-05 20:30] VITALS: BP 114/48
--- NOTE | 2019-02-06 02:38 | NUR ---
I have reviewed this patient and I concur with the Shift Assessment completed by the Licensed Practical Nurse today this shift.
[2019-02-06 04:30] VITALS: BP 132/58
[2019-02-06 07:01] LABS: BASOPHILS 0.2 % (0-2); EOSINOPHILS 0.2 % (0-7); HEMATOCRIT 38.4 % (36.0-48.0); HEMOGLOBIN 12.7 g/dL (12-16); IMMATURE GRANULOCYTES 0.3 % (0-5); LYMPHOCYTES 16.7 % (15-50); MCH 32.8 pg (26.0-34.0); MCHC 33.1 g/dL (31.0-37.0); MCV 99.2 fL (80.0-100.0); MEAN PLATELET VOLUME 9.8 fL (7.4-10.4); MONOCYTES 12.5 % (2-11); NEUTROPHILS 70.1 % (40-80); RBC 3.87 10x6/uL (4.00-5.40); RDW 13.4 % (11.5-14.5); WBC 5.9 10x3/uL (4.8-10.8)
[2019-02-06 07:03] LABS: PLATELET COUNT 164 10x3/uL (130-400)
[2019-02-06 07:05] LABS: ANION GAP 13.4 mmol/L (8-16); CALCIUM 7.6 mg/dL (8.5-10.1); CARBON DIOXIDE 24.1 mmol/L (21.0-32.0); CREATININE - SERUM 1.3 mg/dL (0.6-1.3); MAGNESIUM - SERUM 1.4 mg/dL (1.8-2.4); POTASSIUM - SERUM 3.5 mmol/L (3.5-5.1)
[2019-02-06 07:12] LABS: PHOSPHOROUS 1.5 mg/dL (2.5-4.9)
--- NOTE | 2019-02-06 09:00 | NUR ---
PT RECEIVED IN BED. IV STOPPED DUE TO LEAKING. NEW ONE STARTED. ASSIST PT TO RESTROOM. TOLERATING LIQUIDS AND STATES FEELING STRONGER, LESS PAIN, AND LESS NAUSEA.
[2019-02-06 09:39] VITALS: BP 143/71
[2019-02-06 14:38] VITALS: BP 136/64
--- NOTE | 2019-02-06 16:14 | NUR ---
Rehab Note- Acute Inpatient Rehab prescreen order received. THe patient was seen by PT & signed off, will watch for any decline in physical mobility. Thank you for this referral! Madelaine Velasco RN Clinical Liaison, [facility] Re[facility]
[2019-02-06 17:52] VITALS: BP 141/77
[2019-02-06 20:00] VITALS: BP 142/73
--- NOTE | 2019-02-06 22:15 | NUR ---
PHOS REDRAW 1.7 - GAVE 1 PKT NEUTRA-PHOS MIXED WITH 60 MLS ORANGE JUICE. GAVE OTHER SCHEDULED MEDS. NO OTHER NEEDS. WILL REASSESS AND CONTINUE TO MONITOR.
[2019-02-07] VITALS: BP 130/66
[2019-02-07 04:00] VITALS: BP 131/71
--- NOTE | 2019-02-07 07:00 | NUR ---
RECEIVED REPORT. ASSUMED CARE OF PATIENT. PT RESTING IN BED WITH EYES CLOSED, EASILY AROUSED. RESP EVEN AND UNLABORED. CALL LIGHT WITHIN REACH. PATIENT DENIES NEEDS AT THIS TIME. NO DISTRESS.
[2019-02-07 07:21] LABS: BASOPHILS 0.4 % (0-2); EOSINOPHILS 1.6 % (0-7); HEMATOCRIT 38.7 % (36.0-48.0); HEMOGLOBIN 12.6 g/dL (12-16); IMMATURE GRANULOCYTES 0.4 % (0-5); LYMPHOCYTES 25.8 % (15-50); MCH 32.2 pg (26.0-34.0); MCHC 32.6 g/dL (31.0-37.0); MEAN PLATELET VOLUME 9.8 fL (7.4-10.4); MONOCYTES 13.8 % (2-11); PLATELET COUNT 155 10x3/uL (130-400); RBC 3.91 10x6/uL (4.00-5.40); RDW 13.5 % (11.5-14.5); WBC 4.5 10x3/uL (4.8-10.8)
[2019-02-07 07:38] LABS: ANION GAP 10.2 mmol/L (8-16); CALCIUM 7.9 mg/dL (8.5-10.1); CARBON DIOXIDE 25.7 mmol/L (21.0-32.0); CREATININE - SERUM 1.2 mg/dL (0.6-1.3); MAGNESIUM - SERUM 1.4 mg/dL (1.8-2.4); PHOSPHOROUS 2.2 mg/dL (2.5-4.9); POTASSIUM - SERUM 3.9 mmol/L (3.5-5.1)
--- NOTE | 2019-02-07 07:50 | NUR ---
ASSISTED PATIENT OOB TO RESTROOM. NO DISTRESS.
[2019-02-07 09:05] VITALS: BP 138/68
--- NOTE | 2019-02-07 11:30 | NUR ---
FSBS 107. NO INSULIN COVERAGE REQUIRED PER SLIDING SCALE.
--- NOTE | 2019-02-07 12:13 | NUR ---
ASSISTED PATIENT OOB TO RESTROOM AND BACK TO BED. NO DISTRESS.
[2019-02-07 12:41] VITALS: BP 144/68
[2019-02-07 16:11] VITALS: BP 112/55
--- NOTE | 2019-02-07 16:46 | NUR ---
FSBS 111. NO INSULIN PER SLIDING SCALE.
--- NOTE | 2019-02-07 17:46 | NUR ---
ASSISTED PATIENT OOB TO RESTROOM AND BACK TO BED. NO DISTRESS.
--- NOTE | 2019-02-07 19:42 | NUR ---
RECEIVE UP IN BED WITH EYES CLOSED. EASILY AROUSES TO VERBAL STIMULI. ALERT AND ORIENTED X4. REQUIRES MIN ASSIST WITH AMBULATION. IV TO LEFT FA WITH NS AT 75CC/HR. DENIES ANY PAIN OR NEEDS AT THIS TIME.
[2019-02-07 20:36] VITALS: BP 119/58
[2019-02-08 00:27] VITALS: BP 150/51
[2019-02-08 04:45] VITALS: BP 154/77
[2019-02-08 06:27] LABS: BASOPHILS 0.6 % (0-2); EOSINOPHILS 2.7 % (0-7); HEMATOCRIT 38.4 % (36.0-48.0); HEMOGLOBIN 12.9 g/dL (12-16); IMMATURE GRANULOCYTES 0.4 % (0-5); LYMPHOCYTES 27.9 % (15-50); MCH 32.8 pg (26.0-34.0); MCHC 33.6 g/dL (31.0-37.0); MCV 97.7 fL (80.0-100.0); MEAN PLATELET VOLUME 9.4 fL (7.4-10.4); MONOCYTES 12.7 % (2-11); NEUTROPHILS 55.7 % (40-80); PLATELET COUNT 172 10x3/uL (130-400); RBC 3.93 10x6/uL (4.00-5.40); RDW 13.3 % (11.5-14.5); WBC 4.7 10x3/uL (4.8-10.8)
[2019-02-08 06:50] LABS: ANION GAP 12.2 mmol/L (8-16); CARBON DIOXIDE 23.2 mmol/L (21.0-32.0); CREATININE - SERUM 1.1 mg/dL (0.6-1.3); MAGNESIUM - SERUM 1.3 mg/dL (1.8-2.4); PHOSPHOROUS 2.1 mg/dL (2.5-4.9); POTASSIUM - SERUM 3.4 mmol/L (3.5-5.1)
--- NOTE | 2019-02-08 07:00 | NUR ---
RECEIVED REPORT. ASSUMED CARE OF PATIENT. CALL LIGHT WITHIN REACH. PATIENT RESTING IN BED WITH ATTENTION TOWARD TELEVISION. DENIES NEEDS AT THIS TIME. NO DISTRESS.
[2019-02-08 08:28] VITALS: BP 160/106
--- NOTE | 2019-02-08 08:43 | NUR ---
K+, MAG, PHOS ELECTROLYTE PROTOCOL INITIATED FOR PATIENT.
--- NOTE | 2019-02-08 11:33 | NUR ---
FSBS 120. NO INSULIN ADMINISTRATION PER SLIDING SCALE
[2019-02-08 12:00] VITALS: BP 169/81
--- NOTE | 2019-02-08 14:02 | NUR ---
k+ RESULTED 3.8 FROM ADMINISTERING ELECTROLYTE PROTOCOL.
--- NOTE | 2019-02-08 14:36 | NUR ---
ASSISTED PATIENT OOB TO RESTROOM. COMPLETE LINEN CHANGED, GOWN CHANGE AND ADLS PERFORMED BY THIS BLOOD SPLATTER ANALYST AT THIS TIME. ASSISTED PATIENT BACK TO BED. NO DISTRESS. CALL LIGHT WITHIN [facility].
--- NOTE | 2019-02-08 16:02 | NUR ---
FSBS 110. NO INSULIN COVERAGE PER SLIDING SCALE.
[2019-02-08 16:32] VITALS: BP 156/72
--- NOTE | 2019-02-08 19:26 | NUR ---
RECEIVED UP IN BED WITH EYES OPEN AND TV ON. STATES 'FEEL MUCH BETTER TODAY". IV TO LEFT FA WITH NS AT 75CC/HR. NO REDNESS OR SWELLING TO SITE. ALERT AND ORIENTED. REQUIRES SBA WITH YRANSFERS AND AMBULATION. [facility] PROTOCOL NOT COMPLETED. WILL REQUEST [facility] FOR PROTOCOL.
--- NOTE | 2019-02-08 20:50 | NUR ---
PT AWARE.LAB RECIEVED MAG LEVEL 1.1. WILL FOLLOW PROTOCOL.
[2019-02-09 00:30] VITALS: BP 128/58
[2019-02-09 04:03] LABS: BASOPHILS 0.4 % (0-2); EOSINOPHILS 4.3 % (0-7); HEMATOCRIT 38.1 % (36.0-48.0); HEMOGLOBIN 12.8 g/dL (12-16); IMMATURE GRANULOCYTES 0.9 % (0-5); LYMPHOCYTES 38.2 % (15-50); MCH 32.6 pg (26.0-34.0); MCHC 33.6 g/dL (31.0-37.0); MCV 96.9 fL (80.0-100.0); MEAN PLATELET VOLUME 9.2 fL (7.4-10.4); MONOCYTES 12.2 % (2-11); PLATELET COUNT 201 10x3/uL (130-400); RBC 3.93 10x6/uL (4.00-5.40); RDW 13.3 % (11.5-14.5); WBC 4.7 10x3/uL (4.8-10.8)
[2019-02-09 04:17] LABS: CALCIUM 8.3 mg/dL (8.5-10.1); CARBON DIOXIDE 25.4 mmol/L (21.0-32.0); PHOSPHOROUS 2.1 mg/dL (2.5-4.9); POTASSIUM - SERUM 3.4 mmol/L (3.5-5.1)
[2019-02-09 04:29] LABS: MAGNESIUM - SERUM 1.5 mg/dL (1.8-2.4)
[2019-02-09 04:30] VITALS: BP 163/77
--- NOTE | 2019-02-09 07:40 | NUR ---
REPORT RECIEVED. PT LYING SEMI FOWLERS. RR EVEN AND NON LABORED ON RA. PT HAS A L FA PIV INFUSING NS@100. BED LOCKED AND IN LOWEST POSITION, CALL LIGHT WITHIN REACH. WILL CTM
[2019-02-09 09:09] LABS: MAGNESIUM - SERUM 1.7 mg/dL (1.8-2.4); POTASSIUM - SERUM 3.7 mmol/L (3.5-5.1)
[2019-02-09 09:20] VITALS: BP 154/80
--- NOTE | 2019-02-09 12:43 | NUR ---
I have reviewed this patient and I concur with the Shift Assessment completed by the Licensed Practical Nurse today this shift.
[2019-02-09 13:41] VITALS: BP 159/80
[2019-02-09] MEDS ORDERED: LEVAQUIN750 MG PO (14:35)
[2019-02-09] MEDS ORDERED: FLAGYL500 MG PO (14:35)
--- NOTE | 2019-02-09 14:37 | MORECARE ---
CASE MANAGEMENT DISCHARGE SUMMARY PATIENT: ABHIJIT GALE UNIT: [id number] ADM DATE: 02/05/19 AGE: 83 : 35 SEX: F ROOM/BED: D.1240 AUTHOR: LAVELLE,DOC PHYSICIAN: REFERRING PHYSICIAN: LUDY BEGUM MD DATE OF SERVICE: 02/09/19 Discharge Plan Patient Name: ABHIJIT GALE Facility: [facility]:[place] : 1935 Planned Disposition: Assisted Living Anticipated Discharge Date: 02/09/19 Discharge Date: Expected LOS: 4 Initial Reviewer: [email or web address] Initial Review Date: 02/09/2019 Generated: 02/09/19 3:36 pm Comments DCP- Discharge Planning Updated by [email or web address]: Esau Shields on 02/09/19 1:[address] Patient Name: ABHIJIT GALE Admission Status: ER Accout number: [id number] Admission Date: 02-05-2019 : 1935 Admission Diagnosis: Attending: SUMMER BEGUM Current LOS: 4 Anticipated DC Date: 02-09-2019 Planned Disposition: Assisted Living Primary Insurance: MEDICARE A & B PLANNED EXTERNAL PROVIDER: [facility] Discharge Planning Comments: CM RECEIVED ORDER FOR INPATIENT REHAB PRESCREENING. CM MET WITH PT IN ROOM TO DISCUSS DISCHARGE PLANNING AND NEEDS. PT REPORTS LIVING AT HOME DEPENDENTLY AT [facility] IN [place]. PT REPORTS THEY ASSIST WITH MEDICATIONS, MEALS AND BATHING WELL HOUSEKEEPING AND TRANSPORTATION. PT HAS STANDARD WALKER WITH NO MEDICAL EQUIPMENT PROVIDER PREFERENCE. PT HAS NO OUTSIDE SERVICES ASSISTING IN THE HOME. CM DISCUSSED AVAILABILITY OF HOME HEALTH, REHAB SERVICES AND MEDICAL EQUIPMENT. PT DOES NOT WANT TO GO TO REHAB AND STATES SHE HAS NO NEED OF IT AT THIS TIME. SHE HAS BEEN THERE AND STATES TO LEAVE IT FOR SOMEONE WHO NEEDS IT. CM OFFERED HOME HEALTH, PT STATES SHE IS DOING BETTER NOW THAT WHEN HOME HEALTH FINISHED SEEING HER THE LAST TIME AND DOES NOT NEED IT EITHER. PT DENIES DISCHARGE NEEDS, REPORTS [facility] WILL PICK HER UP FOR DISCHARGE HOME. IMPORTANT MESSAGE FROM MEDICARE PROVIDED AND EXPLAINED. CM CALLED [facility], , SPOKE TO ROSLYN WHO INFORMED CM THAT THEY WILL ACCEPT PT BACK AND WILL MATCH UP PERSON FOR DISCHARGE BACK TO ASSISTED LIVING. CM TO CONTINUE TO FOLLOW AND ASSIST NEEDED. FOR DISCHARGE, NOTIFY JENNIFER AT [phone]; FAX DISCHARGE MEDICATION LIST TO JENNIFER AT [phone]. Last Sawyer: Esau Shields DCPIA - Discharge Planning Initial Assessment Updated by [email or web address]: Esau Shields on 02/09/19 2:30 pm * Is the patient Alert and Oriented? Yes * How many steps to enter\exit or inside your home? NONE * PCP ERIC CASTILLO ([facility]) * Pharmacy [facility], [place] * Preadmission Environment Assisted Living * Facility Name [facility] * ADLs Partial Dependent * Partial ADLs (Assistance needed) Bathing Medication Management * Equipment Walker * Other Equipment NO MEDICAL EQUIPMENT PROVIDER PREFERNECE * List name and contact numbers for known caregivers / representatives who currently or will assist patient after discharge: MESSI GALE, DTR, * Verbal permission to speak to the caregivers and representatives has been obtained from the patient. Yes * Community resources currently utilized None * Please name any agencies selected above. NONE * Additional services required to return to the preadmission environment? No * Can the patient safely return to the preadmission environment? Yes * Has this patient been hospitalized within the prior 30 days at any hospital? No Coverage Notice Reviewer: [id number] - Esau Shields Notice Issued Date-Time: 02/09/2019 14:15 Notice Type: IM Discharge Notice Notice Delivered To: Patient Relationship to Patient: Camp Advisor Name: Delivery Method: HAND - Hand Delivered Ivone Days: Prior Verbal Notification: Recipient Understood Notice: Yes Recipient Signature: Yes Med Rec Note Co-signed by Attending: Coverage Notice Comment: Patient Name: ABHIJIT GALE Page [phone] at 1437 All edits/amendments must be made on the electronic document DICTATION DATE: 02/09/191435 RELIEF PILOT: CASH 02/09/191435 RPT#: [id number] DC DATE: STATUS: ADM IN [facility] [address] [place] [address] END OF REPORT
--- NOTE | 2019-02-09 15:06 | MORECARE ---
CASE MANAGEMENT DISCHARGE SUMMARY PATIENT: ABHIJIT GALE UNIT: [id number] ADM DATE: 02/05/19 AGE: 83 : 35 SEX: F ROOM/BED: D.5719 AUTHOR: LAVELLE,DOC PHYSICIAN: REFERRING PHYSICIAN: LUDY BEGUM MD DATE OF SERVICE: 02/09/19 Discharge Plan Patient Name: ABHIJIT GALE Facility: [facility]:[place] : 1935 Planned Disposition: Assisted Living Anticipated Discharge Date: 02/09/19 Discharge Date: Expected LOS: 4 Initial Reviewer: [email or web address] Initial Review Date: 02/09/2019 Generated: 02/09/19 4:06 pm Comments DCP- Discharge Planning Updated by [email or web address]: Esau Shields on 02/09/19 1:[address] Patient Name: ABHIJIT GALE Admission Status: ER Accout number: [id number] Admission Date: 02-05-2019 : 1935 Admission Diagnosis: Attending: SUMMER BEGUM Current LOS: 4 Anticipated DC Date: 02-09-2019 Planned Disposition: Assisted Living Primary Insurance: MEDICARE A & B PLANNED EXTERNAL PROVIDER: [facility] Discharge Planning Comments: CM RECEIVED ORDER FOR INPATIENT REHAB PRESCREENING. CM MET WITH PT IN ROOM TO DISCUSS DISCHARGE PLANNING AND NEEDS. PT REPORTS LIVING AT HOME DEPENDENTLY AT [facility] IN [place]. PT REPORTS THEY ASSIST WITH MEDICATIONS, MEALS AND BATHING WELL HOUSEKEEPING AND TRANSPORTATION. PT HAS STANDARD WALKER WITH NO MEDICAL EQUIPMENT PROVIDER PREFERENCE. PT HAS NO OUTSIDE SERVICES ASSISTING IN THE HOME. CM DISCUSSED AVAILABILITY OF HOME HEALTH, REHAB SERVICES AND MEDICAL EQUIPMENT. PT DOES NOT WANT TO GO TO REHAB AND STATES SHE HAS NO NEED OF IT AT THIS TIME. SHE HAS BEEN THERE AND STATES TO LEAVE IT FOR SOMEONE WHO NEEDS IT. CM OFFERED HOME HEALTH, PT STATES SHE IS DOING BETTER NOW THAT WHEN HOME HEALTH FINISHED SEEING HER THE LAST TIME AND DOES NOT NEED IT EITHER. PT DENIES DISCHARGE NEEDS, REPORTS [facility] WILL PICK HER UP FOR DISCHARGE HOME. IMPORTANT MESSAGE FROM MEDICARE PROVIDED AND EXPLAINED. CM CALLED [facility], , SPOKE TO ROSLYN WHO INFORMED CM THAT THEY WILL ACCEPT PT BACK AND WILL NEEDLEMAKER FOR DISCHARGE BACK TO ASSISTED LIVING. CM TO CONTINUE TO FOLLOW AND ASSIST NEEDED. FOR DISCHARGE, NOTIFY JENNIFER AT [phone]; FAX DISCHARGE MEDICATION LIST TO JENNIFER AT [phone]. Funeral Greeter: Esau Shields DCPIA - Discharge Planning Initial Assessment Updated by [email or web address]: Esau Shields on 02/09/19 2:30 pm * Is the patient Alert and Oriented? Yes * How many steps to enter\exit or inside your home? NONE * PCP ERIC CASTILLO ([facility]) * Pharmacy [facility] * Preadmission Environment Assisted Living * Facility Name [facility] * ADLs Partial Dependent * Partial ADLs (Assistance needed) Bathing Medication Management * Equipment Walker * Other Equipment NO MEDICAL EQUIPMENT PROVIDER PREFERNECE * List name and contact numbers for known caregivers / representatives who currently or will assist patient after discharge: MESSI GALE DTR, * Verbal permission to speak to the caregivers and representatives has been obtained from the patient. Yes * Community resources currently utilized None * Please name any agencies selected above. NONE * Additional services required to return to the preadmission environment? No * Can the patient safely return to the preadmission environment? Yes * Has this patient been hospitalized within the prior 30 days at any hospital? No External Providers External Provider: OTHER-OTHER Next Contact Date: 02/09/2019 Service Request Date: Service Type: Resolution: Reviewer: Comments: Coverage Notice Reviewer: [email or web address] - Esau Shields Notice Issued Date-Time: 02/09/2019 14:15 Notice Type: IM Discharge Notice Notice Delivered To: Patient Relationship to Patient: Managed Services Consultant Name: Delivery Method: HAND - Hand Delivered Ivone Days: Prior Verbal Notification: Recipient Understood Notice: Yes Recipient Signature: Yes Med Rec Note Co-signed by Attending: Coverage Notice Comment: Last DP export: 02/09/19 1:37 Patient Name: ABHIJIT GALE Page [phone] at 1506 All edits/amendments must be made on the electronic document DICTATION DATE: 02/09/19 1506 ELECTRIC GOLF CART REPAIRERS: CASH 02/09/19 1506 RPT#: [id number] OK DATE: STATUS: ADM IN [facility] [address] [place] [address] END OF REPORT
--- NOTE | 2019-02-09 15:19 | NUR ---
REPORT CALLED TO MARK AT [facility].
--- NOTE | 2019-02-09 15:29 | NUR ---
DC PAPERWORK GONE OVER AND SIGNED WITH PT. ALL QUESTIONS ANSWERED. PIV REMOVED,CATH TIP FULLY INTACT. AWAITING FOR JENNIFER TO PICK PT UP. ALL VALUBLES PACKED UP. WILL CTM
--- NOTE | 2019-02-09 15:36 | MORECARE ---
CASE MANAGEMENT DISCHARGE SUMMARY PATIENT: ABHIJIT GALE UNIT: [id number] ADM DATE: 02/05/19 AGE: 83 : 35 SEX: F ROOM/BED: D.2865 AUTHOR: LAVELLE,DOC PHYSICIAN: REFERRING PHYSICIAN: LUDY BEGUM MD DATE OF SERVICE: 02/09/19 Discharge Plan Patient Name: ABHIJIT GALE Facility: [facility]:[place] : 1935 Planned Disposition: Assisted Living Anticipated Discharge Date: 02/09/19 Discharge Date: Expected LOS: 4 Initial Reviewer: [email or web address] Initial Review Date: 02/09/2019 Generated: 02/09/19 4:36 pm Comments DCP- Discharge Planning Updated by [email or web address]: Esau Shields on 02/09/19 1:[address] Patient Name: ABHIJIT GALE Admission Status: ER Accout number: [id number] Admission Date: 02-05-2019 : 1935 Admission Diagnosis: Attending: SUMMER BEGUM Current LOS: 4 Anticipated DC Date: 02-09-2019 Planned Disposition: Assisted Living Primary Insurance: MEDICARE A & B PLANNED EXTERNAL PROVIDER: [facility] Discharge Planning Comments: CM RECEIVED ORDER FOR INPATIENT REHAB PRESCREENING. CM MET WITH PT IN ROOM TO DISCUSS DISCHARGE PLANNING AND NEEDS. PT REPORTS LIVING AT HOME DEPENDENTLY AT [facility] IN [place]. PT REPORTS THEY ASSIST WITH MEDICATIONS, MEALS AND BATHING WELL HOUSEKEEPING AND TRANSPORTATION. PT HAS STANDARD WALKER WITH NO MEDICAL EQUIPMENT PROVIDER PREFERENCE. PT HAS NO OUTSIDE SERVICES ASSISTING IN THE HOME. CM DISCUSSED AVAILABILITY OF HOME HEALTH, REHAB SERVICES AND MEDICAL EQUIPMENT. PT DOES NOT WANT TO GO TO REHAB AND STATES SHE HAS NO NEED OF IT AT THIS TIME. SHE HAS BEEN THERE AND STATES TO LEAVE IT FOR SOMEONE WHO NEEDS IT. CM OFFERED HOME HEALTH, PT STATES SHE IS DOING BETTER NOW THAT WHEN HOME HEALTH FINISHED SEEING HER THE LAST TIME AND DOES NOT NEED IT EITHER. PT DENIES DISCHARGE NEEDS, REPORTS [facility] WILL PICK HER UP FOR DISCHARGE HOME. IMPORTANT MESSAGE FROM MEDICARE PROVIDED AND EXPLAINED. CM CALLED [facility], , SPOKE TO ROSLYN WHO INFORMED CM THAT THEY WILL ACCEPT PT BACK AND WILL ROBOTIC WELDING OPERATOR FOR DISCHARGE BACK TO ASSISTED LIVING. CM TO CONTINUE TO FOLLOW AND ASSIST NEEDED. FOR DISCHARGE, NOTIFY JENNIFER AT [phone]; FAX DISCHARGE MEDICATION LIST TO [facility], [facility] AT [phone]. Community Development Manager: Esau Shields DCPIA - Discharge Planning Initial Assessment Updated by [id number]: Esau Shields on 02/09/19 2:30 pm * Is the patient Alert and Oriented? Yes * How many steps to enter\exit or inside your home? NONE * PCP ERIC CASTILLO ([facility]) * Pharmacy [facility] [place] * Preadmission Environment Assisted Living * Facility Name [facility] * ADLs Partial Dependent * Partial ADLs (Assistance needed) Bathing Medication Management * Equipment Walker * Other Equipment NO MEDICAL EQUIPMENT PROVIDER PREFERNECE * List name and contact numbers for known caregivers / representatives who currently or will assist patient after discharge: MESSI GALE, DTR, * Verbal permission to speak to the caregivers and representatives has been obtained from the patient. Yes * Community resources currently utilized None * Please name any agencies selected above. NONE * Additional services required to return to the preadmission environment? No * Can the patient safely return to the preadmission environment? Yes * Has this patient been hospitalized within the prior 30 days at any hospital? No Coverage Notice Reviewer: [id number] - Esau Shields Notice Issued Date-Time: 02/09/2019 14:15 Notice Type: IM Discharge Notice Notice Delivered To: Patient Relationship to Patient: Vice President Biostatistics Name: Delivery Method: HAND - Hand Delivered Ivone Days: Prior Verbal Notification: Recipient Understood Notice: Yes Recipient Signature: Yes Med Rec Note Co-signed by Attending: Coverage Notice Comment: Last DP export: 02/09/19 2:07 Patient Name: ABHIJIT GALE Page 85631 at 1536 All edits/amendments must be made on the electronic document DICTATION DATE: 02/09/191535 SAIL REPAIRER: CASH 02/09/191535 RPT#: [id number] DC DATE: STATUS: ADM IN [facility] [address] [place] [address] END OF REPORT
--- NOTE | 2019-02-09 15:45 | NUR ---
OT NOTE: PT COMPLETED BED MOB WITH SPV. PT COMPLETED EOB SITTING WITH SPV. PT COMPLETED HYGIENE TASKS WITH SET UP. THANK YOU,LIV SELLERS
--- NOTE | 2019-02-09 15:47 | NUR ---
Nutrition Follow-up: Diet advanced yesterday. Pt reports tolerating solids. Denies N/V. Diet: Diabetic PO intake: 50-100% Wt: 195# (197# on 02/05) Last BM: 02/09 Labs noted: K+ 3.4, Glu 129, PO4 2.1, Ca 8.3, Mg 1.5 Meds noted: Neutra Phos, KDur, Mag Sulf, Mag Ox, NS @ 75 -Continue current diet as tolerated. -RD following.
--- NOTE | 2019-02-09 16:06 | NUR ---
[facility] ARRIVED TO TRANSPORT PT HOME. ALL VALUBLES REMOVED FROM ROOM.
== END 2019-02-09 16:08 | disposition home or self-care (01) | DRG 392 ==
LOC: D.ER 17:56 → D.M2 20:39 → OBSVTIME 20:48 → D.M2 02-05 20:17
PROVIDERS: Family Medicine; ADMIT Emergency Medicine; ATTEND Emergency Medicine
DX: A09 Infectious gastroenteritis and colitis, unspecified (principal); N17.9 Acute kidney failure, unspecified; I13.0 Hypertensive heart and chronic kidney disease with heart failure and stage 1 through stage 4 chronic kidney disease, or unspecified chronic kidney disease; E11.22 Type 2 diabetes mellitus with diabetic chronic kidney disease; E11.65 Type 2 diabetes mellitus with hyperglycemia; N18.9 Chronic kidney disease, unspecified; I50.9 Heart failure, unspecified; K21.9 Gastro-esophageal reflux disease without esophagitis; E03.9 Hypothyroidism, unspecified; F03.90 Unspecified dementia, unspecified severity, without behavioral disturbance, psychotic disturbance, mood disturbance, and anxiety; Z86.73 Personal history of transient ischemic attack (TIA), and cerebral infarction without residual deficits

== ENCOUNTER 2019-11-29 04:04 | Emergency (ER) | payer MEDICARE ==
[~2019-11-29] VITALS: Ht 162.6 cm; Wt 77.3 kg
[~2019-11-29 04:04] MED LIST changes: +FLAGYL500 MG PO; +FLUTICASONE PRO16 GM NASAL; +HCTZ25 MG; +LEVAQUIN750 MG PO; +SUMATRIPTAN SUC25 MG PO; +ZETIA10 MG PO
[2019-11-29 04:11] VITALS: Ht 162.6 cm; Wt 77.3 kg
[2019-11-29] MEDS ORDERED: HYDRALAZINE HCL25 MG PO (04:20)
[2019-11-29] MEDS ORDERED: MACROBID100 MG PO (04:20)
[2019-11-29 05:16] LABS: BASOPHILS 0.1 % (0-2); BILIRUBIN NEGATIVE (NEGATIVE); EOSINOPHILS 0.7 % (0-7); HEMOGLOBIN 14.7 g/dL (12-16); IMMATURE GRANULOCYTES 0.2 % (0-5); KETONE SMALL mg/dL (NEGATIVE); LYMPHOCYTES 4.2 % (15-50); MCH 31.2 pg (26.0-34.0); MCHC 32.7 g/dL (31.0-37.0); MCV 95.5 fL (80.0-100.0); MEAN PLATELET VOLUME 9.7 fL (7.4-10.4); MONOCYTES 5.2 % (2-11); NEUTROPHILS 89.6 % (40-80); NITRITE NEGATIVE (NEGATIVE); PLATELET COUNT 209 10x3/uL (130-400); RBC 4.71 10x6/uL (4.00-5.40); RDW 14.1 % (11.5-14.5); UROBILINOGEN NORMAL mg/dL (< 2); WBC 10.1 10x3/uL (4.8-10.8)
[2019-11-29 05:25] LABS: APTT 31.7 SECONDS (22.8-39.4); INR 0.93 (0.85-1.17); PROTIME 12.4 SECONDS (11.6-15.0)
[2019-11-29 05:26] LABS: CALCIUM 9.4 mg/dL (8.5-10.1); CARBON DIOXIDE 27.3 mmol/L (21.0-32.0); CHLORIDE - SERUM 107 mmol/L (98-107); CREATININE - SERUM 1.7 mg/dL (0.6-1.3); POTASSIUM - SERUM 3.3 mmol/L (3.5-5.1); SODIUM 141 mmol/L (136-145); UREA NITROGEN 22 mg/dL (7-18); eGFR NON AFRICAN AMERICAN 30 mL/min (90-120)
[2019-11-29 05:34] LABS: ALBUMIN 3.1 g/dL (3.4-5.0); ALKALINE PHOSPHATASE 149 U/L (30-120); ALT (SGPT) 153 U/L (10-68); AMYLASE - SERUM 44 U/L (25-115); BILIRUBIN - TOTAL 0.56 mg/dL (0.2-1.3); LIPASE 99 U/L (73-393); PROTEIN - SERUM 6.7 g/dL (6.4-8.2)
[2019-11-29 05:40] LABS: CALC OSMOLALITY 289 mosm/kg (275-300); GLUCOSE 199 mg/dL (74-106); TROPONIN-I < 0.017 ng/mL (0.000-0.060)
[2019-11-29] MEDS ORDERED: ZOFRAN ODT4 MG/UDTAB PO (08:34)
[2019-11-29] MEDS ORDERED: FLORASTOR250 MG PO (08:34)
[2019-11-29 09:32] VITALS: BP 121/69
== END 2019-11-29 09:33 | disposition home or self-care (01) ==
LOC: D.ER 04:04
PROVIDERS: Emergency Medicine
DX: R11.2 Nausea with vomiting, unspecified (principal); R10.9 Unspecified abdominal pain; K80.20 Calculus of gallbladder without cholecystitis without obstruction; N20.0 Calculus of kidney; F03.90 Unspecified dementia, unspecified severity, without behavioral disturbance, psychotic disturbance, mood disturbance, and anxiety; I10 Essential (primary) hypertension